=== PATIENT | female | born 1950 | race Caucasian/White ===

== ENCOUNTER 2022-04-14 16:49 | Emergency (ER) | payer MEDICARE, SELFPAY ==
[2022-04-14 17:04] VITALS: BP 184/66; PULSE 69; RESP 18; TEMP 37.6; O2SAT 99
[2022-04-14 17:10] VITALS: BP 184/66; PULSE 69; RESP 18; TEMP 37.6; O2SAT 99
--- NOTE | 2022-04-14 17:15 | ED.SKABFB ---
HPI - Skin/Abscess/Foreign Bdy General Chief complaint: Upper Respiratory Infection Stated complaint: Sinus, Right Ear Irritation Time Seen by Provider: 04/14/22 17:15 History of Present Illness HPI narrative: Harika Rivera is a 71 yo female with PMH of high cholesterol, HTN, anticoagulation, who [facility] with complaints of right cheek pain that go into her teeth into her right ear. Started last night is only on the right side denies any rash or any history or symptoms of shingles. When asked of his dental she said possibly her ear is also affected Related Data Home Medications Medication Instructions Recorded Confirmed atorvastatin 40 mg tablet mg 04/14/22 clopidogrel 75 mg tablet mg 04/14/22 metoprolol tartrate 25 mg tablet mg 04/14/22 Allergies Allergy/AdvReac Type Severity Reaction Status Date / Time Sulfa (Sulfonamide Allergy Intermediate Unknown Verified 04/14/22 16:52 Antibiotics) Review of Systems Review of Systems: CONSTITUTIONAL: Denies fever, chills, sweats. EYES: Denies visual changes, redness, discharge. ENT: Denies rhinorrhea, congestion, sore throat, otalgia. Right-sided facial pain with pressure and sinus right ear pain and pressure in her teeth she denies any rash or history of shingles CARDIOVASCULAR: Denies chest pain, palpitations, edema. RESPIRATORY: Denies dyspnea, wheezing, cough GASTROINTESTINAL: Denies abdominal pain, nausea, vomiting, diarrhea. GENITOURINARY: Denies dysuria, hematuria, abnormal discharge SKIN: Denies rash or itching. NEUROLOGIC: Denies numbness, or focal weakness. PSYCHIATRIC: Denies anxiety or depression. [facility]LY [facility] Family History Family History Sibling Patient's brother is in good health Family history of respiratory disorder Patient's brother is Mother Family history of malignant neoplasm Father Family history of Parkinson's disease Family history of diabetes mellitus in first degree relative Family history of dementia Social History Social History Smoking status: Former smoker Smoking end date: 08/06/14 Alcohol intake: never Comments At time of signature, I agree with nursing past medical, surgical, social and family history. There is no relevant family history pertinent to the presenting complaint. Exam Narrative: GENERAL: This is a well-nourished, well-developed patient, in mild distress. HEAD: normocephalic, atraumatic. EYES: PERRL. Sclera clear/white. Vision is grossly intact. EARS: External ears normal, auditory canals erythema on right and without drainage, TMs normal without perforation. Hearing grossly intact. NOSE: External nose normal without nasal discharge, nares without redness, no rhinorrhea. Identifies pain on cheek and into teeth base slightly puffy THROAT: Mucous membranes moist, posterior pharynx erythema denies dental pain NECK: Neck supple, non-tender CARDIOVASCULAR: Regular rate and rhythm without murmurs, gallops, or rubs. RESPIRATORY: Clear to auscultation. Breath sounds equal bilaterally. No wheezes, rales, or rhonchi. GASTROINTESTINAL: Abdomen soft, non-tender, SKIN: warm, intact with no suspicious lesions or rash, good texture and turgor. NEURO: awake, alert, and oriented to person, place and time. There were no obvious focal neurologic abnormalities. Steady gait EXTREMITIES: Normal range of motion. BACK: Nontender without deformity Course Course Emergency Course: Patient here with right-sided facial pain and ear pain and tenderness to tooth started on amoxicillin, Tylenol with codeine and steroids Level of Care: Express Care Visit Vital Signs Vital signs: Vital Signs Temperature 99.6 F 04/14/22 17:04 Pulse Rate 69 04/14/22 17:04 Respiratory Rate 18 04/14/22 17:04 Blood Pressure 184/66 H 04/14/22 17:04 Pulse Oximetry 99 04/14/22 17:04 Oxy
== END 2022-04-14 17:35 | disposition home or self-care (01) ==
PROVIDERS: Emergency Provider Nurse Practitioner; PCP Internal Medicine
DX: H92.01 Otalgia, right ear (principal); J34.89 Other specified disorders of nose and nasal sinuses; Z87.891 Personal history of nicotine dependence; E78.00 Pure hypercholesterolemia, unspecified; I10 Essential (primary) hypertension
CPT/HCPCS: 99213; G0463

== ENCOUNTER 2023-02-13 14:07 | Outpatient (CLI) | payer MEDICARE, SELFPAY ==
--- NOTE | ~2023-02-13 | US_ITS ---
EXAMINATION: US art doppler w press LE BI DATE: 02/13/2023 14:54 INDICATION: Claudication TECHNIQUE: Segmental pressures and plethysmographic and Doppler waveforms of the brachial and lower e xtremity arteries were obtained. COMPARISON: None. FINDINGS: Right and left brachial artery pressures of 148 mm Hg and 147 mm Hg, respectively, are concordant (no rmal difference <= 30 mmHg). The right and left high-thigh pressure indices unable to be obtained due to inability to occlude the vessel in either thigh. The right ankle-brachial index (DUSTIN) is 1.11 (normal >= 0.9-1). The right great toe-brachial index (T BI) is 0.67 (normal >= 0.6-0.8). The right lower extremity segmental pressure gradients are normal (n ormal gradients <= 20-30 mmHg between adjacent levels on the same leg or the same levels on the two l egs). Arterial waveforms are biphasic with brisk systolic upstrokes throughout the arteries of the ri ght lower limb.. The left DUSTIN is 1.18. The left TBI is 0.68. The left lower extremity segmental pressure gradient is i ncreased between the left dorsalis pedis and posterior tibial arteries. Arterial waveforms are biphas ic with brisk systolic upstrokes throughout the arteries of the left lower limb. IMPRESSION: 1. Normal DUSTIN's and TBI's bilaterally. No significant occlusive disease. Reviewed, dictated and finalized at location A.
== END 2023-02-13 14:08 | disposition home or self-care (01) ==
PROVIDERS: PCP Internal Medicine; Visit Provider Internal Medicine Cardiovascular Disease
DX: I73.9 Peripheral vascular disease, unspecified (principal)
CPT/HCPCS: 93923